=== PATIENT | female | born 1975 | race Caucasian/White ===

== ENCOUNTER 2019-10-29 13:30 | Outpatient (CLI) | payer OTHER, SELFPAY ==
[2019-10-29 13:44] LABS: Hematocrit 39.4 % (35.0-49.0); Mean Corpuscular Hemoglobin 30.2 pg (27.0-31.0); Mean Corpuscular Volume 91.6 fL (78.0-102.0); Mean Platelet Volume 9.4 fl (9.2-11.8); Platelet Count Result 239 K/mm3 (150-420); Red Cell Distribution Width 12.7 % (11.6-14.4); White Blood Count 6.6 K/mm3 (4.8-10.8)
[2019-10-29 14:35] LABS: Anion Gap 10.6 mmol/L (7-16); Blood Urea Nitrogen 22 mg/dL (7-18); Calcium 9.3 mg/dL (8.5-10.1); Carbon Dioxide 30 mmol/L (21-32); Chloride 103 mmol/L (98-108); Estimated Glomerular Filt Rate > 60; Glucose 125 mg/dL (70-99); Osmolality Calculated 292 mOsm/kg (285-295); Potassium 4.6 mmol/L (3.5-5.1); Sodium 139 mmol/L (136-145)
[2019-10-29 14:36] LABS: Thyroid Stimulating Hormone Reflex 1.74 u/IU/mL (0.36-3.74)
== END 2019-10-29 13:31 | disposition home or self-care (01) ==
PROVIDERS: PCP Nurse Practitioner Family
DX: F33.1 Major depressive disorder, recurrent, moderate (principal)
CPT/HCPCS: 36415; 80048; 84443; 85027

== ENCOUNTER 2020-01-11 08:34 | Outpatient (CLI) | payer OTHER, SELFPAY ==
[2020-01-12 18:39] LABS: SARS-CoV-2 RNA PCR Negative
== END 2020-01-11 08:35 | disposition home or self-care (01) ==
LOC: CHSLAB 08:37
PROVIDERS: PCP Nurse Practitioner Family; Visit Provider Nurse Practitioner Family
DX: Z20.828 Contact with and (suspected) exposure to other viral communicable diseases (principal); R51 Headache
CPT/HCPCS: 87635; C9803; U0003

== ENCOUNTER 2020-02-15 01:17 | Outpatient (CLI) | payer OTHER, SELFPAY ==
[2020-02-15 19:05] LABS: SARS-CoV-2 RNA PCR Negative
== END 2020-02-15 01:18 | disposition home or self-care (01) ==
LOC: ANHCOVIDDT 01:17
PROVIDERS: PCP Nurse Practitioner Family; Visit Provider Internal Medicine Gastroenterology
DX: Z01.812 Encounter for preprocedural laboratory examination (principal); Z20.828 Contact with and (suspected) exposure to other viral communicable diseases
CPT/HCPCS: 87635; C9803; U0003

== ENCOUNTER 2020-02-17 01:14 | Day surgery (SDC) | payer OTHER, SELFPAY ==
[2020-02-10 10:48] VITALS: BMI 29.4
--- NOTE | 2020-02-16 08:05 | WPDANESEPPF ---
Anes - Initial Pre Proc Eval Procedure: Operation Date: 02/17/20 09:30 Proposed Procedures p Screening Colonoscopy - Jose Roberto Mueller MD Date/Time: 02/16/20 08:05 Surgeon: Jose Roberto Mueller MD Pre Op Diagnosis: neoplasm screening, family hx colon CA Patient Data Age: 44 Gender: F Height: 1.57 m Weight: 73 kg Allergies Allergy/AdvReac Type Severity Reaction Status Date / Time No Known Allergies Allergy Verified 02/04/20 10:23 Home Medications Medication Instructions Recorded Confirmed Type aspirin 81 mg tablet,delayed 81 mg PO DAILY 05/26/19 02/10/20 History release escitalopram oxalate 20 mg tablet 20 mg PO DAILY tablet 02/04/20 02/17/20 History Patient hx anesthesia problems: none Family hx anesthesia problems: none PMFSH Past Medical History Medical History Depression BENTON (generalized anxiety disorder) 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 History of blood clot in brain (~2011) Surgical History Surgical History History of appendectomy History of brain surgery Brain tumor and blood clots History of Family History Family History Mother Diabetes mellitus Father Diabetes mellitus Social History Social History Smoking status: Never smoker Alcohol intake: current Alcohol use details: SOCIALLY Substance use: never Substance use type: does not use Living arrangements: with family Additional living arrangements comments: , has 2 children Gender identity (if verbalized by the patient): Female Spiritual care concerns: No Anes - Eval Final PreProcedure Day of Procedure 02/16/20 08:05 Patient weight: overweight Heart: regular rate and rhythm Lungs: clear to auscultation and normal air movement Airway: Mallampati scale class II Neurological: alert and oriented Last oral intake: >/= 8 hours ASA classification: II Emergent: no Anesthetic plan: proceed Anesthesia type and monitoring: general GIVS and standard monitoring Informed Consent: The patient's anesthetic plan and its attendant risks and benefits were discussed with the patient/family/POA. Questions were solicited and answers provided to the satisfaction of the patient/family/POA.
--- NOTE | 2020-02-17 08:57 | PM.HPGS ---
History of Present Illness History of Present Illness Consent: Risks, benefits, and alternatives have been discussed and questions answered. Patient agrees to proceed with procedure. Chief complaint: neoplasm screening, family hx colon CA Narrative: Ivet Nicole is a 44 year old W female referred for screening colonoscopy secondary to history of colon cancer family in maternal grandmother. patient is asymptomatic. 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 History of blood clot in brain (~2011) Surgical History Surgical History History of appendectomy History of brain surgery Brain tumor and blood clots History of Family History Family History Mother Diabetes mellitus Father Diabetes mellitus Social History Social History Smoking status: Never smoker Alcohol intake: current Alcohol use details: SOCIALLY Substance use: never Substance use type: does not use Living arrangements: with family Additional living arrangements comments: , has 2 children Gender identity (if verbalized by the patient): Female Spiritual care concerns: No Meds Home Medications and Allergies Home Medications Medication Instructions Recorded Confirmed Type aspirin 81 mg tablet,delayed 81 mg PO DAILY 05/26/19 02/10/20 History release escitalopram oxalate 20 mg tablet 20 mg PO DAILY tablet 02/04/20 02/10/20 History Allergies Allergy/AdvReac Type Severity Reaction Status Date / Time No Known Allergies Allergy Verified 02/04/20 10:23 Exam Const: Orientation/consciousness: patient oriented x3 Resp: Auscultation: clear to auscultation bilaterally Cardio: Rate: regular rate Rhythm: regular rhythm Heart sounds: no murmurs GI: GI Palp: Yes Soft to palpation, No Tenderness to palpation present (GI), Yes No hepatosplenomegaly present and No Palpable mass present Auscultation: normal bowel sounds Neuro: General: patient oriented x3 and no focal motor deficits Extrem: General: no pedal edema Assessment and Plan Additional Plan screening colonoscopy
[2020-02-17 09:01] VITALS: BP 122/78; PULSE 67; RESP 18; TEMP 35.7; O2SAT 100
[2020-02-17] MEDS: LACTATED RINGERS 1,000 ML 150 ML IV CONT (09:21)
[2020-02-17 09:54] VITALS: BP 99/65; PULSE 60; RESP 18; O2SAT 100
[2020-02-17 10:04] VITALS: BP 100/59; PULSE 61; RESP 18; O2SAT 100
[2020-02-17 10:14] VITALS: BP 112/56; PULSE 62; RESP 17; O2SAT 98
== END 2020-02-17 10:45 | disposition home or self-care (01) ==
PROVIDERS: PCP Nurse Practitioner Family; Visit Provider Internal Medicine Gastroenterology
PROC: 0DJD8ZZ Inspection of Lower Intestinal Tract, Via Natural or Artificial Opening Endoscopic (ICD-10-PCS; CPT 45378; principal; 2020-02-17 09:30)
DX: Z12.11 Encounter for screening for malignant neoplasm of colon (principal); K64.8 Other hemorrhoids; K64.4 Residual hemorrhoidal skin tags; Z80.0 Family history of malignant neoplasm of digestive organs; F41.1 Generalized anxiety disorder; F32.9 Major depressive disorder, single episode, unspecified; Z79.82 Long term (current) use of aspirin; Z85.841 Personal history of malignant neoplasm of brain
CPT/HCPCS: 45378; J7120

== ENCOUNTER 2020-02-23 08:49 | Outpatient (CLI) | payer OTHER, SELFPAY ==
--- NOTE | ~2020-02-23 | MM_ITS ---
EXAMINATION: MM screening donaldo BI w shanae HISTORY: Screening TECHNIQUE: Craniocaudal and mediolateral oblique 3-D tomosynthesis images were obtained and synthetic 2-D images were generated. CAD analysis was submitted and interpreted. COMPARISON: Comparison to multiple prior studies sequentially, with oldest reviewed study dated 01/07. BREAST PARENCHYMAL COMPOSITION: The breasts are extremely dense, which lowers the sensitivity of mamm ography. FINDINGS: There is no evidence of suspicious mass, calcification, or architectural distortion to sugg est malignancy in either breast. There has been no suspicious interval change. IMPRESSION: 1. No mammographic evidence of malignancy. 2. Recommend routine screening mammography in one year. BI-RADS Category 1: Negative Reviewed, dictated and finalized at location A. SIVE CARDIOLOGIST
== END 2020-02-23 08:50 | disposition home or self-care (01) ==
LOC: CHSIMG 08:50
PROVIDERS: PCP Nurse Practitioner Family; Visit Provider Obstetrics & Gynecology
DX: Z12.31 Encounter for screening mammogram for malignant neoplasm of breast (principal)
CPT/HCPCS: 77063; 77067

== ENCOUNTER 2021-03-02 12:56 | Outpatient (CLI) | payer OTHER, SELFPAY ==
--- NOTE | ~2021-03-02 | MM_ITS ---
EXAMINATION: MM screening donaldo BI w shanae HISTORY: Screening mammogram TECHNIQUE: Craniocaudal and mediolateral oblique 3-D tomosynthesis images were obtained and synthetic 2-D images were generated. CAD analysis was submitted and interpreted. COMPARISON: 02/2020, 01/19/2019, 01/07/2018 bilateral screening mammogram examinations 01/29/2018 diagnostic left mammogram BREAST PARENCHYMAL COMPOSITION: The breasts are heterogeneously dense, which may obscure small masses . FINDINGS: There is no evidence of suspicious mass, calcification, or architectural distortion to sugg est malignancy in either breast. There has been no suspicious interval change. IMPRESSION: 1. No mammographic evidence of malignancy. 2. Recommend routine screening mammography in one year. BI-RADS Category 1: Negative Reviewed, dictated and finalized at location A. Y PLAN SALES UNIT ADVISOR
== END 2021-03-02 12:57 | disposition home or self-care (01) ==
LOC: CHSIMG 12:58
PROVIDERS: PCP Nurse Practitioner Family; Visit Provider Obstetrics & Gynecology
DX: Z12.31 Encounter for screening mammogram for malignant neoplasm of breast (principal)
CPT/HCPCS: 77063; 77067

== ENCOUNTER 2022-03-06 12:56 | Outpatient (CLI) | payer OTHER, SELFPAY ==
--- NOTE | ~2022-03-06 | MM_ITS ---
EXAMINATION: MM screening donaldo BI w shanae HISTORY: Screening TECHNIQUE: Craniocaudal and mediolateral oblique 3-D tomosynthesis images were obtained and synthetic 2-D images were generated. CAD analysis was submitted and interpreted. COMPARISON: Comparison to multiple prior studies sequentially, with oldest reviewed study dated 01/07. BREAST PARENCHYMAL COMPOSITION: The breasts are heterogeneously dense, which may obscure small masses . FINDINGS: There is no evidence of suspicious mass, calcification, or architectural distortion to sugg est malignancy in either breast. There has been no suspicious interval change. IMPRESSION: 1. No mammographic evidence of malignancy. 2. Recommend routine screening mammography in one year. BI-RADS Category 1: Negative Reviewed, dictated and finalized at location A. MANAGEMENT AGENT
== END 2022-03-06 12:57 | disposition home or self-care (01) ==
LOC: CHSIMG 12:58
PROVIDERS: PCP Nurse Practitioner Family; Visit Provider Obstetrics & Gynecology
DX: Z12.31 Encounter for screening mammogram for malignant neoplasm of breast (principal)
CPT/HCPCS: 77063; 77067

== ENCOUNTER 2023-03-11 12:26 | Outpatient (CLI) | payer OTHER, SELFPAY ==
--- NOTE | ~2023-03-11 | MM_ITS ---
EXAMINATION: MM screening donaldo BI w shanae HISTORY: TECHNIQUE: Craniocaudal and mediolateral oblique 3-D tomosynthesis images were obtained and synthetic 2-D images were generated. CAD analysis was submitted and interpreted. COMPARISON: 03/06/2022, 03/02/2021, 02/2020 bilateral screening mammogram examinations BREAST PARENCHYMAL COMPOSITION: The breasts are heterogeneously dense, which may obscure small masses . FINDINGS: There is no evidence of suspicious mass, calcification, or architectural distortion to sugg est malignancy in either breast. There has been no suspicious interval change. IMPRESSION: 1. No mammographic evidence of malignancy. 2. Recommend routine screening mammography in one year. BI-RADS Category 1: Negative Reviewed, dictated and finalized at location A. PAINTER
== END 2023-03-11 12:27 | disposition home or self-care (01) ==
LOC: CHSIMG 12:28
PROVIDERS: PCP Family Medicine; Visit Provider Obstetrics & Gynecology
DX: Z12.31 Encounter for screening mammogram for malignant neoplasm of breast (principal)
CPT/HCPCS: 77063; 77067

== ENCOUNTER 2024-02-10 12:16 | Outpatient (CLI) | payer OTHER, SELFPAY ==
[2024-02-10 12:37] LABS: Basophils Absolute Auto 0.03 K/mm3 (0.00-0.10); Basophils Percent Auto 0.4 % (0.0-1.0); Eosinophils Absolute Auto 0.27 K/mm3 (0.02-0.50); Eosinophils Percent Auto 3.8 % (1.0-6.0); Hematocrit 38.8 % (35.0-49.0); Hemoglobin 12.7 g/dL (12.0-15.0); Immature Granulocyte Absolute 0.02 K/mm3 (0.00-0.00); Immature Granulocyte Percent A 0.3 % (0.0-0.0); Lymphocytes Absolute Auto 2.39 K/mm3 (1.10-4.50); Mean Corpuscular HGB Conc 32.7 g/dL (32-36); Mean Corpuscular Hemoglobin 29.2 pg (27.0-31.0); Mean Corpuscular Volume 89.2 fL (78.0-102.0); Mean Platelet Volume 9.2 fl (9.2-11.8); Monocytes Percent Auto 7.1 % (2.0-11.0); Neutrophils Absolute Auto 3.82 K/mm3 (1.70-7.20); Neutrophils Percent Auto 54.4 % (50.0-70.0); Platelet Count Result 265 K/mm3 (150-420); Red Blood Count 4.35 M/mm3 (4.20-5.40); Red Cell Distribution Width 12.9 % (11.6-14.4)
[2024-02-10 13:11] LABS: Hemoglobin A1C 7.2 % (<5.7)
[2024-02-10 13:14] LABS: Alanine Aminotransferase 32 U/L (14-59); Albumin Level 3.3 g/dL (3.4-5.0); Alkaline Phosphatase 144 U/L (46-116); Anion Gap 10 mmol/L (4-12); Aspartate Amino Transferase < 10 U/L (15-37); Bilirubin,Total 0.2 mg/dL (0.00-1.00); Blood Urea Nitrogen 14 mg/dL (7-18); Calcium 8.7 mg/dL (8.5-10.1); Carbon Dioxide 26 mmol/L (21-32); Chloride 102 mmol/L (98-108); Cholesterol 190 mg/dL (0-200); Estimated Glomerular Filt Rate > 60; Glucose 190 mg/dL (70-99); HDL Direct 42 mg/dL (40-60); LDL Cholesterol Calculated 101 mg/dL (<130); Osmolality Calculated 291 mOsm/kg (285-295); Potassium 4.1 mmol/L (3.5-5.1); Sodium 138 mmol/L (136-145); Total Protein 6.7 g/dL (6.4-8.2); Triglycerides 233 mg/dL (0-150); Uric Acid 2.5 mg/dL (2.6-6.0)
[2024-02-10 13:35] LABS: Thyroid Stimulating Hormone Reflex 2.27 u/IU/mL (0.36-3.74)
== END 2024-02-10 12:17 | disposition home or self-care (01) ==
LOC: CHSLAB 12:18
PROVIDERS: PCP Nurse Practitioner Family; Visit Provider Nurse Practitioner Family
DX: Z00.00 Encounter for general adult medical examination without abnormal findings (principal); M79.672 Pain in left foot
CPT/HCPCS: 36415; 80053; 80061; 83036; 84443; 84550; 85025

== ENCOUNTER 2024-02-12 14:07 | Outpatient (CLI) | payer OTHER, SELFPAY ==
--- NOTE | ~2024-02-12 | XR_ITS ---
XR foot LT min 3V Ordering provider: Dean Smith APRN History: . M79.672 - Pain in left foot . Comparison: None. FINDINGS: BONES: No acute fracture or dislocation. Calcaneal spur. JOINT SPACES: Normal. No tarsal coalition. SOFT TISSUES: Normal. IMPRESSION: No acute osseous abnormality left foot. Reviewed, dictated and finalized at location A.
== END 2024-02-12 14:08 | disposition home or self-care (01) ==
LOC: CHSIMG 14:09
PROVIDERS: PCP Nurse Practitioner Family; Visit Provider Nurse Practitioner Family
DX: M79.672 Pain in left foot (principal)
CPT/HCPCS: 73630

== ENCOUNTER 2024-02-17 10:49 | Outpatient (RCR) | payer OTHER, SELFPAY ==
--- NOTE | 2024-02-17 11:49 | PTOPEVAL1 ---
Assessment and note entered by Keo Negron Evaluation Information Assessment Status Evaluation Diagnosis left foot pain ICD-10 Condition Codes (PT) M25.572 Onset 02/04/24 Subjective Information Pt. reports she woke with left foot pain on . She recalls no incident, just sudden onset in the morning. She reports that her pain has slightly improved since evaluation. She has undergone x-ray of the left foot that did not have any findings. She states that she will undergo US this afternoon. She states that pain is worsened with weight bearing. She reports that she can only walk for about 5-10 minutes due to left foot pain. She states pain does not affect sleep. She reports that she alters her footwear and has [employer] Balance tennis shoes at home. She states that her goal is to reduce her foot pain. Reported Pain Level Pain Score 5: Self Report Assessment PT Clinical Summary Pt. is a 48 year old female who enters the clinic with left foot pain. Pt. presentation is consistent with plantar fasciitis. She presents with impaired gait, impaired foot posture and impaired flexibility. Educated pt. regarding footwear and modifications to reduce pain. Continued skilled PT is indicated in order to improve these areas to allow for improved comfort with IADL performance. Plan of Care Interventions Electrical Stimulation,Hot Pack/Cold Pack,Manual Therapy,Neuro Re-education,Patient/Caregiver Educati,Therapeutic Activities,Therapeutic Exercise PT Services Indicated Yes Treatment Frequency and 1x/week x 4 visits Duration These treatments will address the objective and functional deficits as defined above. The patient will be advanced safely and appropriately in order for the patient to progress towards his/her prior level of function. Additional exercises will be introduced and as well as a comprehensive home exercise program upon discharge, if needed, ?to ensure carryover of functional gains achieved in the clinic. This treatment plan has been reviewed and agreement upon by the patient.
--- NOTE | 2024-02-17 11:50 | OPREHPOC ---
Outpatient Therapy Plan of Care This is a Multidisciplinary Plan of Care that may contain components documented by all disciplines (PT, OT, and ST.) PT Problem 1 PT Problem #1 Knowledge Deficit PT Goal 1 Goal / Goal Update Pt. will be independent with a HEP addressing flexibility Target Visit 2 PT Problem 2 PT Problem #2 Impaired Range of Motion PT Goal 1 Goal / Goal Update Pt. will demonstrate 10 degrees bilateral ankle dorsiflexion Target Visit 4 PT Problem 3 PT Problem #3 Impaired Functional Mobil PT Goal 1 Goal / Goal Update Pt. will reports a reduction in pain levels to 2/ 10 at worst with walking for greater than 30 minutes Target Visit 4
== END 2024-02-17 11:30 | disposition home or self-care (01) ==
LOC: CHSPT 10:49
PROVIDERS: PCP Family Medicine; Visit Provider Nurse Practitioner Family
DX: M79.672 Pain in left foot (principal)
CPT/HCPCS: 97110; 97161

== ENCOUNTER 2024-02-19 10:03 | Outpatient (CLI) | payer OTHER, SELFPAY ==
--- NOTE | ~2024-02-19 | US_ITS ---
LEFT LOWER EXTREMITY VENOUS ULTRASOUND Ordering provider: Dean Smith APRN History: . M79.89 - Other specified soft tissue disorders . Comparison: None. FINDINGS: --COMMON FEMORAL: Patent and free of thrombus. Normal compressibility, phasic flow and augmentation. --PROXIMAL SUPERFICIAL FEMORAL: Patent and free of thrombus. Normal compressibility, phasic flow and augmentation. --DISTAL SUPERFICIAL FEMORAL: Patent and free of thrombus. Normal compressibility, phasic flow and au gmentation. --POPLITEAL: Patent and free of thrombus. Normal compressibility, phasic flow and augmentation. --POSTERIOR TIBIAL: Patent and free of thrombus. Normal compressibility, phasic flow and augmentation . IMPRESSION: Negative left lower extremity venous US. No deep vein thrombosis. Reviewed, dictated and finalized at location A.
== END 2024-02-19 10:04 | disposition home or self-care (01) ==
LOC: CHSIMG 10:04
PROVIDERS: PCP Family Medicine; Visit Provider Nurse Practitioner Family
DX: M79.672 Pain in left foot (principal); M79.89 Other specified soft tissue disorders
CPT/HCPCS: 93971

== ENCOUNTER 2024-03-15 13:04 | Outpatient (CLI) | payer OTHER, SELFPAY ==
--- NOTE | ~2024-03-15 | MM_ITS ---
EXAMINATION: MM screening donaldo BI w shanae HISTORY: Screening TECHNIQUE: Craniocaudal and mediolateral oblique 3-D tomosynthesis images were obtained and synthetic 2-D images were generated. CAD analysis was submitted and interpreted. COMPARISON: Comparison to multiple prior studies sequentially, with oldest reviewed study dated 01/07. BREAST PARENCHYMAL COMPOSITION: Dense: The breasts are extremely dense, which lowers the sensitivity of mammography. FINDINGS: There is no evidence of suspicious mass, calcification, or architectural distortion to sugg est malignancy in either breast. There has been no suspicious interval change. IMPRESSION: 1. No mammographic evidence of malignancy. 2. Recommend routine screening mammography in one year. BI-RADS CATEGORY 1 - NEGATIVE Reviewed, dictated and finalized at location B. ALT PAVING MACHINE OPERATOR
== END 2024-03-15 13:05 | disposition home or self-care (01) ==
LOC: CHSIMG 13:07
PROVIDERS: PCP Family Medicine; Visit Provider Obstetrics & Gynecology
DX: Z12.31 Encounter for screening mammogram for malignant neoplasm of breast (principal)
CPT/HCPCS: 77063; 77067

== ENCOUNTER 2024-05-12 08:01 | Outpatient (RCR) | payer OTHER, SELFPAY ==
--- NOTE | 2024-05-12 09:16 | OPREHPOC ---
Outpatient Therapy Plan of Care This is a Multidisciplinary Plan of Care that may contain components documented by all disciplines (PT, OT, and ST.) PT Problem 1 PT Problem #1 Knowledge Deficit PT Goal 1 Goal / Goal Update 1. independent and compliant with HEP Target Visit 5 PT Problem 2 PT Problem #2 Pain PT Goal 1 Goal / Goal Update 1. decrease pain at worst to 3/10 or less in the R shoulder Target Visit 10 PT Problem 3 PT Problem #3 Impaired Range of Motion PT Goal 1 Goal / Goal Update 1. 160 degrees active R shoulder flexion 2. 85 degrees or better active R shoulder ER 3. 70 degrees or better active R shoulder IR Target Visit 10 PT Problem 4 PT Problem #4 Impaired Strength PT Goal 1 Goal / Goal Update 1. 5/5 R elbow strength 2. 5/5 R shoulder strength 3. 5/5 L shoulder ER strength Target Visit 10 PT Problem 5 PT Problem #5 Impaired Functional Mobility PT Goal 1 Goal / Goal Update 1. quick dash to display 10% or less functional deficits 2. patient to achieve functional reach behind back to the bra line with the R UE Target Visit 10
--- NOTE | 2024-05-12 09:16 | PTOPEVAL1 ---
Assessment and note entered by JT File, PT Evaluation Information Assessment Status Evaluation Diagnosis other shoulder lesions, R ICD-10 Condition Codes (PT) Pain in right shoulder M25.511 Other ICD-10 Condition Codes ( M75.81 PT) Subjective Information patient reports she stepped off the front porch steps back in September of 2023. she does not remember what happened, but came to sitting with her keys and coffee mug in her hands. she reports she was unable to move the R arm after this. she reports she also injured the L foot and R knee during this fall. she reports the shoulder was sore for a long time, and then had difficulty reaching behind her back to put her bra on. she reports when reaching overhead feels like a bunch of needles in her shoulder. she reports she does have some pain around the R elbow. she reports no tingling in the R arm. she reports she did not have any xrays or imaging. Reported Pain Level Pain Score 0: Self Report Assessment PT Clinical Summary mrs. haque is a 48 yo woman who presents to skilled PT services for evaluation and treatment of R shoulder pain from a fall back in September of 2023. she presents today with tenderness around the R shoulder, weakness of the R shoulder, and pain with special tests indicating a RTC and biceps tendonitis leading with secondary impingement. she would benefit from continued skilled PT to address her objective/functional deficits and return to her prior level functional activity performance/quality of life. Plan of Care Interventions Electrical Stimulation,Hot Pack/Cold Pack,Manual Therapy,Neuro Re-education,Patient/Caregiver Education,Therapeutic Activities,Therapeutic Exercise PT Services Indicated Yes Treatment Frequency and 2x weekly for 10 visits Duration These treatments will address the objective and functional deficits as defined above. The patient will be advanced safely and appropriately in order for the patient to progress towards his/her prior level of function. Additional exercises will be introduced and as well as a comprehensive home exercise program upon discharge, if needed, ?to ensure carryover of functional gains achieved in the clinic. This treatment plan has been reviewed and agreement upon by the patient.
--- NOTE | 2024-06-29 08:50 | PTOPDC ---
Assessment and note entered by Lala Aparicio DPT Evaluation Information Assessment Status Discharge Diagnosis other shoulder lesions, R ICD-10 Condition Codes (PT) Pain in right shoulder M25.511 Other ICD-10 Condition Codes ( M75.81 PT) Subjective Information patient reports her shoulder has stayed about the same. she reports she continues to have pain with all reaching activities and sleeping. she reports she does not have a follow up scheduled. Reported Pain Level Pain Score 8: Self Report Assessment PT Clinical Summary Ms. Nicole has attended 10 visits of skilled PT with limited progress towards goals. She continues to have elevated pain levels with all daily activities and sleeping. She also displays minimal improvements in active ROM and strength of the R shoulder. Patient is independent with HEP. Patient will be discharged at this time and recommend further imaging for next steps in POC. Plan of Care PT Services Indicated No
== END 2024-06-29 09:09 | disposition home or self-care (01) ==
LOC: CHSPT 08:01
PROVIDERS: PCP Family Medicine; Visit Provider Family Medicine
DX: M75.81 Other shoulder lesions, right shoulder (principal)
CPT/HCPCS: 97014; 97110; 97161; G0283

== ENCOUNTER 2024-09-01 11:59 | Emergency (ER) | payer OTHER, SELFPAY ==
[2024-09-01] VITALS (21 sets, daily range): BP systolic 135–150; BP diastolic 88–95; PULSE 71–96; RESP 16–34; TEMP 36.6; O2SAT 91–99
--- NOTE | ~2024-09-01 | CT_ITS ---
CTA chest PE protocol Ordering provider: Santana Edward MD History: 49 years Female with . chest pain wit positive d-dimer . Comparison: None. Technique: CT angiogram chest was performed following timed intravenous injection of contrast. Thin s lice axial images and reformatted coronal images were obtained. Three dimensional reformatted images of the chest were also obtained using a [employer] workstation. . Automated exposure control and iterati ve reconstruction technique were employed. The dose-length product was 392.62 mGy-cm. 90 ML Omnipaque 350 was given IV. Findings: PULMONARY ARTERIES: No pulmonary embolus. VISUALIZED THORACIC INLET: Normal. MEDIASTINUM: Aorta/coronary arteries: The thoracic aorta is normal. Heart/other: The heart is not enlarged. Lymph nodes: No mediastinal or hilar adenopathy. LUNGS: No pulmonary nodules or masses. No infiltrates or effusions. No pneumothorax. Dependent atelectatic c hanges. VISUALIZED UPPER ABDOMEN: the visualized upper abdomen is normal. MUSCULOSKELETAL: Soft tissues: The superficial soft tissues are normal. Bones: Age appropriate degenerative changes of the spine. IMPRESSION: 1. No pulmonary embolism. 2. No acute cardiopulmonary pathology. Reviewed, dictated and finalized at location A.
--- NOTE | ~2024-09-01 | XR_ITS ---
EXAMINATION: XR chest 1V portable 09/01/2024 13:25 INDICATION: Chest pain PROCEDURE: AP portable chest COMPARISON: 12/05/2011 FINDINGS: The lungs are clear. The cardiomediastinal silhouette is within normal limits. There are no pleural effusions. There is no pneumothorax suspected. IMPRESSION: 1: NO ACUTE CARDIOPULMONARY DISEASE. Reviewed, dictated and finalized at location A.
--- NOTE | 2024-09-01 12:01 | ECG_ITS ---
Test Date: 2024-09-01 12:37:55 Measurements Intervals Stephens Rate: 84 P: 74 PA: 164 QRS: 68 QRSD: 74 T: 78 QT: 360 QTc: 427 Interpretive Statements SINUS RHYTHM LOW QRS VOLTAGE IN PRECORDIAL LEADS [QRS DEFLECTION < 1.0 mV IN CHEST LEADS] No previous ECG available for comparison Electronically Signed On 09-02-2024 15:53:13 CDT by Gary Chapman M.D.
--- OUTSIDE RECORDS SUMMARY | 2024-09-01 12:03 | XMS_ITS | Clinical Summary ---
Author Organization [facility] Address [address] [place] [address] Care Team Providers Care Pressure Tester Name Role Phone Suyapa Ruby NP Primary Care Provide r Allergies No known active allergies Medications aspirin 81 mg chewable tablet daily. Active calcium carbonate (TUMS) 500 mg (200 mg elemental) chewable tablet take as directed when needed Active acetaminophen (TYLENOL) 325 mg tablet PRN Active multivitamin capsule Take 1 capsule by mouth daily Active FLUoxetine (PROzac) 60 mg tablet Take 1 tablet (60 mg total) by mouth daily 90 capsule 2 08/13/19 25 026 Active OLANZapine (ZyPREXA) 5 mg tabletIndicati ons:Depression Treatment Adjunct Take 1 tablet (5 mg total) by mouth nightly 90 tablet 3 08/13/19 25 026 Active FLUoxetine (PROzac) 40 mg capsule Take 1 capsule (40 mg total) by mouth daily 90 capsule 2 06/23/19 25 025 Discontinued OLANZapine (ZyPREXA) 5 mg tabletIndicati ons:Depression Treatment Adjunct Take 1 tablet (5 mg total) by mouth nightly 30 tablet 3 07/13/19 25 025 Discontinued(Re order) Active Problems Problem Noted Date Diagnosed Date History of brain tumor 06/26/2022 Insomnia 10/29/2021 Memory impairment 03/20/2021 ROME (obstructive sleep apnea) 03/20/2021 Anxiety and depression 03/20/2021 Language difficulty 03/20/2021 Anxiety 09/29/2020 Moderate episode of recurrent major depressive d isorder 10/19/2019 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 02/27/2011 Encounters Date Type Department Care Team Description 08/12/2024 10:30 AM CDT Office Visit [facility] Psych[facility] [address] [place] [address] Tracee Hamlin NP MDD (major depressive disorder), recurrent episode, moderate (HCC) (Primary Dx); Anxiety; Domestic concerns 07/01/2024 10:30 AM CDT Office Visit [facility] Psychiat[facility] [address] [place] [id number] Tracee Hamlin NP MDD (recurrent major depressive disorder) in remission (Primary Dx); Anxiety; Domestic concerns from Last 3 Months Immunizations Immunization Administration Dates Next Due Influenza, Quadrivalent, Luna l Culture-based MDCK, Preservative Free, Antibiotic Free, Intramuscular 02/22/2021 Influenza, Quadrivalent, Split, Intramuscular Influenza, Quadrivalent, Spl it, Preservative Free, Intramuscular 02/04/2020,02/13/2019 Influenza, Trivalent, IM (MDV) 02/05/2013 Influenza, Trivalent, Preservative Free, Intramu scular 02/05/2016,02/13/2015 Moderna SARS-CoV-2 Monovalent Vaccination (12+ Y RS) 08/04/2020,07/07/2020 Medical History Medical History Date Comments Other phlebitis or thrombosi s affecting , childbirth, or puerperium Intracranial Veno us Sinus Thrombosis During /Puerperium - (Added by TW Conv) Personal history of other sp ecified conditions History of fatigue - (Added by TW Conv) 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 Graves disease Family History Medical History Relation Name Comments c diff Brother 1 No Known Problems Brother 2 Diabetes Father Family history of diabetes mellitus - (Added by TW Conv) Prostate cancer Father eye issues Father Colon cancer Maternal Grandmother Asthma Mother Depression Mother Hypertension Mother Family history of hypertension - (Added by TW Conv) Thyroid disease Mother Family histo ry of thyroid disease - (Added by TW Conv) hysterectomy Mother Dementia Other maternal great aunt Dementia Paternal Grandmother Relation Name Status Comments Brother 1 Alive Brother 2 Alive Father Alive Maternal Grandmother Mother Other maternal great aunt Alive Paternal Grandmother Social History Tobacco Use Types Packs/Day Years Used Date Smoking Tobacco: Never Smokeless Tobacco: Never Tobacco Cessation:Counseling Given: Not Answered AUDIT-C Answer Date Recorded Q1: How often do you have a drink containing alc ohol? 2-4 times a month 03/20/2021 Q2: How many drinks containi ng alcohol do you have on a typical day when you are drinking? 1 or 2 03/20/2021 Frequency of Binge Drinking Not on file 02/21 Education Answer Date Recorded What is the highest level of school you have completed or the highest degree you have received? Bachelor's degree (e.g., BA, AB, BS) 03/20/2021 Comments Unknown Sex and Gender Information Value Date Recorded Sex Assigned at Not on file Legal Sex Female 5:03 AM PENSION CONSULTANT Gender Identity Not on file Sexual Orientation Straight 10/13/2019 3: 10 PM CDT Obstetrics History Last Filed Vital Signs Vital Sign Reading Time Taken Comments Blood Pressure 127/86 05/24/2024 9:04 AM PENSION CONSULTANT Pulse 97 05/24/2024 9:04 AM PENSION CONSULTANT Temperature 36.3 C (97.4 F) 05/24/2024 9:04 AM PENSION CONSULTANT Respiratory Rate 18 05/24/2024 9:04 AM PENSION CONSULTANT Oxygen Saturation 97% 05/24/2024 9:04 AM PENSION CONSULTANT Inhaled Oxygen Concentration - - Weight 81.6 kg (180 lb) 05/24/2024 9:04 AM PENSION CONSULTANT Height 157.5 cm (5' 2.01 ) 05/24/2024 9:04 AM CS T Body Mass Index 32.91 05/24/2024 9:04 AM PENSION CONSULTANT Plan of Treatment Health Maintenance Due Date Last Done Comments Breast Cancer Screening-Mammogram 1977 Cervical Cancer Screening 1977 Colon Cancer Screening-Colonoscopy 1977 Depression Screening 1977 Hepatitis C Screening 1977 DTaP/Tdap/Td Vaccine (1 - Tdap) 1988 Hepatitis B Screening 1995 Regular Well Visit/Exam 18-64 1995 Covid-19 Vaccine ( season) 2023 08/04/2020, 07/07/2020 Influenza Vaccine (Season Ended) 2024 02/22/2021, 02/04/2020, 02/13/2019, Additional history exists Pneumococcal vaccine <65 Aged Out No longer eligible based on patient's age to complete this topic Medical Devices Implanted Type Area Veterinary Milk Specialist Device Identifier Shelf Expiration Date Model / Serial / Lot Iud Vagina Insurance [facility] H[facility]PPO Address: [facility] [id number] [place] [id number] [facility] CHOICE PLUS [facility] HMO/PPO Address: [address] [address] [place] [address] [facility] H[facility]/PPO Address: [id number] [place] [address] Care Teams Pressure Tester Relationship Specialty Start Date End Date Suyapa Ruby NP [address] [place] [address] PCP - General Nurse Practitioner 04/10/21
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
--- NOTE | 2024-09-01 12:16 | ED_ITS ---
HPI - Chest Pain General Chief Complaint: Chest Pain Stated Complaint: chest pain Source: patient Mode of arrival: ambulatory History of Present Illness HPI narrative: 49-year-old female with a history of anxiety /depression, brain tumor status post resection status post chemo / RT 17 years ago, presents to the ED with an 8 hour history of -- substernal chest pain which woke her up from a sleep. No radiation of the pain. Pain was noted to be 7/10. The pain has been intermittent and is currently 3/10. No nausea/ vomiting. No shortness of breath or lightheadedness. No prior episodes of pain. Patient is a nonsmoker without any history of hypertension, dyslipidemia, diabetes mellitus or a family history of coronary artery disease. MD complaint: chest pain Onset (ago): hour(s) ( 8 hours ago) Timing of current episode: episodic Prior episodes: No Onset: during rest Pain location: substernal Pain radiation: none Severity: moderate Pain scale (0-10): 7 Quality: aching Relieving factors: nothing Exacerbating factors: nothing Treatment prior to arrival: none Risk Factors Coronary artery disease risk factors: none Thoracic aortic dissection risk factors: none Related Data On Oral Contraceptives: No Home Medications Medication Instructions Recorded Confirmed Last Taken Type aspirin 81 mg tablet,delayed 81 mg PO DAILY 05/26/19 05/07/24 Unknown History release olanzapine 5 mg tablet mg PO 02/10/24 05/07/24 Unknown History fluoxetine 20 mg capsule 40 mg PO 05/07/24 05/07/24 Unknown History Allergies Allergy/AdvReac Type Severity Reaction Status Date / Time No Known Allergies Allergy Verified 05/07/24 07:55 Review of Systems 2 Review of Systems: All systems reviewed & are unremarkable except as noted in HPI and below Constitutional: Constitutional: Reports as per HPI and Reports no additional constitutional complaints Eyes: Eyes: Reports as per HPI and Reports no additional eye complaints ENT: Reports system reviewed and no additional complaints, except as documented and Reports as per HPI Cardiovascular: Cardiovascular: Reports as per HPI, Reports no additional cardiovascular complaints and Reports chest pain Respiratory: Respiratory: Reports as per HPI and Reports no additional respiratory complaints Gastrointestinal: Gastrointestinal: Reports as per HPI and Reports no additional gastrointestinal complaints Genitourinary: Genitourinary: Reports no additional female genitourinary complaints and Reports as per HPI Musculoskeletal: Musculoskeletal: Reports no additional musculoskeletal complaints and Reports as per HPI Integumentary/Breasts: Skin/Breast: Reports system reviewed and no additional complaints, except as docu and Reports as per HPI Neurologic: Reports system reviewed and no additional complaints, except as documented and Reports as per HPI Psychiatric: Psychiatric: Reports no additional psychiatric complaints and Reports as per HPI Endocrine: Endocrine: Reports no additional endocrine complaints and Reports as per HPI Hematologic/Lymphatic: Hematologic/Lymphatic: Reports no additional hematologic/lymphatic complaints and Reports as per HPI Allergic/Immunologic: Allergic/Immunologic: Reports no additional allergic/immunologic complaints and Reports as per HPI [facility] Past Medical History Medical History Depression History of blood clot in brain (~2011) 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 [place] (generalized anxiety disorder) Surgical History Surgical History History of History of brain surgery Brain tumor and blood clots History of appendectomy Family History Family History Mother Diabetes mellitus Father Diabetes mellitus Social History Social History Smoking status: Never smoker Alcohol intake: current Alcohol use details: SOCIALLY Substance use: never Substance use type: does not use Living arrangements: with family Additional living arrangements comments: , has 2 children Occupation/Education: unemployed Gender identity (if verbalized by the patient): Female Spiritual care concerns: No Exam 2 Narrative: pulse of 86 blood pressure 148/95 oxygen saturation of 97% on room air. Const: General: healthy appearing and no acute distress Nutritional Appearance: well nourished Orientation/consciousness: patient oriented x3 Limitations: no limitations HENMT: Head: normal to inspection Ears: external ears normal F kobe/Nose/Sinus: Normal external nose present Face and sinus: normal facial exam Mouth: Yes Normal oral and palatal mucosa present Throat: posterior oropharynx normal Eyes: Conjunctivae: conjunctivae normal Pupils: Equal, round and reactive pupils present EOM: EOMs intact bilaterally Direct Ophthalmoscopy: no photophobia Neck: Neck: normal visual inspection Chest: Chest palpation & inspection: normal inspection of the chest and abnormal inspection of the chest Resp: Effort & Inspection: normal respiratory effort Auscultation: clear to auscultation bilaterally Cardio: Rate: regular rate Rhythm: regular rhythm GI: Auscultation: normal bowel sounds Other: No tenderness/ rigidity /rebound. : General: Yes no CVA tenderness Back/Spine/Pelvis: Back: no CVA tenderness Skin: General skin exam: normal color Rashes: no rashes Wounds: no wounds Neuro: General: patient oriented x3, moves all extremities, no meningeal signs, no focal motor deficits and CN's II-XI intact bilaterally Cranial nerves: Yes Nystagmus not present Speech: normal speech Gait exam (Neuro): Normal gait present Extrem: General: normal to inspection and no clubbing, cyanosis or edema Psych: Mental Status: mental status grossly normal Affect: normal affect Attitude: cooperative Course Course Emergency Course: Chest pain-- EKG did not show any acute findings. normal troponin. elevated D-dimer. Patient had a CT of chest which did not show any evidence of PE. Elevated LFTs and lipase. patient denies epigastric pain. Will have the patient take p.o. clears and follow-up with the primary care physician. The patient does not have any epigastric pain / tenderness. The patient just received contrast for the chest. Would not be able to repeat a contrast CT of the abdomen. Will have a follow-up with primary care physician in 3 days. And with me on a Vital Signs Vital signs: Vital Signs Pulse Rate 71 09/01/24 12:10 Pulse Rate 78 09/01/24 14:30 Respiratory Rate 28 H 09/01/24 14:30 Blood Pressure 144/94 H 09/01/24 14:30 Pulse Oximetry 97 09/01/24 14:30 Oxygen Delivery Room Air 09/01/24 13:45 MDM - Chest Pain MDM Narrative Medical decision making narrative: Chest pain transaminitis elevated lipase CT Differential Diagnosis Differential diagnosis: Likely atypical chest pain Medical Records Data Attestation: I reviewed the patient's medical records. Lab Data Attestation: I reviewed the patient's lab results. 09/01/24 13:28 09/01/24 13:28 Labs: Lab Results 09/01/24 Range/Units 13:28 WBC 6.9 (4.8-10.8) K/mm3 RBC 4.54 (4.20-5.40) M/mm3 Hgb 12.8 (12.0-15.0) g/dL Hct 40.2 (35.0-49.0) % MCV 88.5 (78.0-102.0) fL MCH 28.2 (27.0-31.0) pg MCHC 31.8 L (32-36) g/dL RDW 13.4 (11.6-14.4) % Plt Count 222 (150-420) K/mm3 MPV 9.0 L (9.2-11.8) fl Immature Gran % (Auto) 0.4 H (0.0-0.0) % Neut % (Auto) 75.1 H (50.0-70.0) % Lymph % (Auto) 16.5 L (18.0-42.0) % Fisher % (Auto) 7.0 (2.0-11.0) % Eos % (Auto) 0.9 L (1.0-6.0) % Baso % (Auto) 0.1 (0.0-1.0) % Lymph # (Auto) 1.13 (1.10-4.50) K/mm3 Fisher # (Auto) 0.48 (0.10-0.90) K/mm3 Eos # (Auto) 0.06 (0.02-0.50) K/mm3 Baso # (Auto) 0.01 (0.00-0.10) K/mm3 Abs Immat Gran (auto) 0.03 H (0.00-0.00) K/mm3 Absolute Neuts (auto) 5.15 (1.70-7.20) K/mm3 Absolute Nucleated RBC 0.00 (0.00-0.00) K/mm3 Nucleated RBC % 0.0 (0-0.0) % PT 10.9 (9.50-12.1) Seconds INR 1.0 APTT 28.8 (23.9-30.70) Sec D-Dimer 1.90 H* (0.19-0.50) mg/L Sodium 136 L (137-145) mmol/L Potassium 3.8 (3.4-5.0) mmol/L Chloride 106 (98-107) mmol/L Carbon Dioxide 22 (22-30) mmol/L Anion Gap 8 (4-12) mmol/L BUN 12 (7-17) mg/dL Creatinine 0.57 L (0.7-1.0) mg/dL Estim Creat Clear Calc Not Reportable Estimated GFR > 60 (59 - ) Glucose 206 H (65-110) mg/dL Calculated Osmolality 287 (285-295) mOsm/kg Lactic Acid 2.2 H (0.4-2.0) mmol/L Calcium 8.6 (8.4-10.2) mg/dL Magnesium 1.9 (1.6-2.3) mg/dL Total Bilirubin 0.6 (0.2-1.3) mg/dL AST 43 H (14-36) U/L ALT 57 H (6-35) U/L Alkaline Phosphatase 110 (38-126) U/L Troponin I < 0.012 (0.000-0.034) ng/mL NT-Pro-B Natriuret Pep 144 H (19.9-100) pg/mL Total Protein 6.7 (6.3-8.2) g/dL Albumin 3.9 (3.5-5.1) g/dL Lipase 439 H (23-300) U/L ECG Data EKG #1: Attestation: I personally reviewed and interpreted this ECG as follows: ECG completion date: 09/01/24 ECG completion time: 12:37 Interpretation: normal sinus rhythm. Normal axis. No ST elevation. Discharge Plan Discharge Clinical Impression: Atypical chest pain, Fatty liver, Elevated lipase Patient Disposition: Home Condition: Stable Instructions: Antibiotic Form, Chest Pain (ED) Additional Instructions: follow-up with primary care physician in 3 days for elevated LFTs and elevated lipase. Patient Language: East Timorese Prescriptions: No Action aspirin 81 mg tablet,delayed release (DR/EC) 81 mg PO DAILY olanzapine 5 mg tablet PO hydrocodone-acetaminophen 5-325 mg tablet 1 tablet PO QHS PRN (Reason: pain (scale score 7-10)) Qty: 20 0RF fluoxetine 20 mg capsule 40 mg PO Follow-up/Referrals: Stanley Mac DO [Primary Care Provider] - Time of Disposition: 15:42
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
[2024-09-01 13:32] LABS: Basophils Absolute Auto 0.01 K/mm3 (0.00-0.10); Basophils Percent Auto 0.1 % (0.0-1.0); Eosinophils Absolute Auto 0.06 K/mm3 (0.02-0.50); Eosinophils Percent Auto 0.9 % (1.0-6.0); Hematocrit 40.2 % (35.0-49.0); Hemoglobin 12.8 g/dL (12.0-15.0); Immature Granulocyte Absolute 0.03 K/mm3 (0.00-0.00); Immature Granulocyte Percent A 0.4 % (0.0-0.0); Lymphocytes Absolute Auto 1.13 K/mm3 (1.10-4.50); Lymphocytes Percent Auto 16.5 % (18.0-42.0); Mean Corpuscular HGB Conc 31.8 g/dL (32-36); Mean Corpuscular Hemoglobin 28.2 pg (27.0-31.0); Mean Corpuscular Volume 88.5 fL (78.0-102.0); Monocytes Absolute Auto 0.48 K/mm3 (0.10-0.90); Neutrophils Absolute Auto 5.15 K/mm3 (1.70-7.20); Neutrophils Percent Auto 75.1 % (50.0-70.0); Platelet Count Result 222 K/mm3 (150-420); Red Blood Count 4.54 M/mm3 (4.20-5.40); Red Cell Distribution Width 13.4 % (11.6-14.4); White Blood Count 6.9 K/mm3 (4.8-10.8)
[2024-09-01 13:50] LABS: Alanine Aminotransferase 57 U/L (6-35); Albumin Level 3.9 g/dL (3.5-5.1); Alkaline Phosphatase 110 U/L (38-126); Anion Gap 8 mmol/L (4-12); Aspartate Amino Transferase 43 U/L (14-36); Bilirubin,Total 0.6 mg/dL (0.2-1.3); Blood Urea Nitrogen 12 mg/dL (7-17); Calcium 8.6 mg/dL (8.4-10.2); Carbon Dioxide 22 mmol/L (22-30); Chloride 106 mmol/L (98-107); Estimated Glomerular Filt Rate > 60; Glucose 206 mg/dL (65-110); Lactic Acid Reflex 2.2 mmol/L (0.4-2.0); Osmolality Calculated 287 mOsm/kg (285-295); Potassium 3.8 mmol/L (3.4-5.0); Sodium 136 mmol/L (137-145); Total Protein 6.7 g/dL (6.3-8.2)
[2024-09-01 13:51] LABS: Partial Thromboplastin Time 28.8 Sec (23.9-30.70); Prothrombin Time 10.9 Seconds (9.50-12.1)
[2024-09-01] MEDS: ASPIRIN 81 MG CHEWABLE TABLET 324 MG PO (13:54)
[2024-09-01 13:59] LABS: NT Pro B Type Natriuretic Pept 144 pg/mL (19.9-100)
[2024-09-01 14:00] LABS: Lipase 439 U/L (23-300); Magnesium 1.9 mg/dL (1.6-2.3)
[2024-09-01 14:13] LABS: Troponin I < 0.012 ng/mL (0.000-0.034)
[2024-09-01] MEDS: LACTATED RINGERS 1,000 ML 999 ML IV CONT (14:26)
[2024-09-01 15:50] LABS: Reflex Lactic Acid Yes or No Add Lactic
== END 2024-09-01 16:14 | disposition home or self-care (01) ==
PROVIDERS: Emergency Provider Internal Medicine Critical Care Medicine; PCP Family Medicine
DX: R07.89 Other chest pain (principal); K76.0 Fatty (change of) liver, not elsewhere classified; R74.8 Abnormal levels of other serum enzymes
CPT/HCPCS: 36415; 71045; 71275; 80053; 83605; 83690; 83735; 83880; 84484; 85025; 85380; 85610; 85730; 93005; 96360; 99284; A9270; J7120; Q9967

== ENCOUNTER 2024-09-10 13:54 | Outpatient (CLI) | payer OTHER, SELFPAY ==
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
[2024-09-10 14:34] LABS: Alanine Aminotransferase 48 U/L (6-35); Albumin Level 3.7 g/dL (3.5-5.1); Alkaline Phosphatase 146 U/L (38-126); Anion Gap 4 mmol/L (4-12); Aspartate Amino Transferase 28 U/L (14-36); Bilirubin,Total 0.4 mg/dL (0.2-1.3); Blood Urea Nitrogen 15 mg/dL (7-17); Calcium 8.9 mg/dL (8.4-10.2); Carbon Dioxide 24 mmol/L (22-30); Chloride 108 mmol/L (98-107); Estimated Glomerular Filt Rate > 60; Glucose 209 mg/dL (65-110); Lipase 172 U/L (23-300); Osmolality Calculated 288 mOsm/kg (285-295); Potassium 4.3 mmol/L (3.4-5.0); Sodium 136 mmol/L (137-145); Total Protein 6.3 g/dL (6.3-8.2)
[2024-09-16 04:29] LABS: Hepatitis A Antibody IgM NON-REACTIVE (NON-REACTIVE); Hepatitis B Core Antibody NON-REACTIVE (NON-REACTIVE); Hepatitis B Surface Antigen NON-REACTIVE (NON-REACTIVE); Hepatitis C Virus Antibody NON-REACTIVE (NON-REACTIVE)
== END 2024-09-10 13:55 | disposition home or self-care (01) ==
LOC: CHSLAB 13:55
PROVIDERS: PCP Family Medicine; Visit Provider Family Medicine
DX: R10.9 Unspecified abdominal pain (principal); R74.01 Elevation of levels of liver transaminase levels; E03.9 Hypothyroidism, unspecified; F41.1 Generalized anxiety disorder
CPT/HCPCS: 36415; 80053; 80074; 83690; 84443

== ENCOUNTER 2024-09-20 11:11 | Outpatient (CLI) | payer OTHER, SELFPAY ==
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
== END 2024-09-20 11:12 | disposition home or self-care (01) ==
PROVIDERS: PCP Family Medicine; Visit Provider Family Medicine
DX: R74.01 Elevation of levels of liver transaminase levels (principal)
CPT/HCPCS: 99199

== ENCOUNTER 2024-09-23 07:37 | Outpatient (CLI) | payer OTHER, SELFPAY ==
--- NOTE | ~2024-09-23 | US_ITS ---
US right upper quadrant INDICATION: Elevated liver function tests. PROCEDURE: Realtime right upper abdominal ultrasound. COMPARISON: No prior studies for comparison. FINDINGS: The pancreas is normal without focal mass or pancreatic ductal dilation. Liver echotexture is diffusely increased, consistent with fatty infiltration. There is normal directional flow in the portal vein. The gallbladder is normal without stones, gallbladder wall thickening or pericholecystic fluid. Comm on bile duct measures 4 mm. No sonographic Tubbs's sign. IMPRESSION: 1: Fatty infiltration of the liver. Reviewed, dictated and finalized at location A.
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
== END 2024-09-23 07:38 | disposition home or self-care (01) ==
LOC: CHSIMG 07:38
PROVIDERS: PCP Family Medicine; Visit Provider Family Medicine
DX: M75.81 Other shoulder lesions, right shoulder (principal); R94.5 Abnormal results of liver function studies; K76.0 Fatty (change of) liver, not elsewhere classified
CPT/HCPCS: 76705

== ENCOUNTER 2025-03-21 13:28 | Outpatient (CLI) | payer OTHER, SELFPAY ==
--- NOTE | ~2025-03-21 | MM_ITS ---
EXAMINATION: MM screening donaldo BI w shanae HISTORY: Screening. TECHNIQUE: Craniocaudal and mediolateral oblique 3-D tomosynthesis images were obtained and synthetic 2-D images were generated. CAD analysis was submitted and interpreted. COMPARISON: 2023, 2022, and 2021. BREAST PARENCHYMAL COMPOSITION: Dense: The breasts are heterogeneously dense FINDINGS: No suspicious masses are seen. There are no suspicious calcifications. No unexplained architectural distortion is seen. There are no skin or nipple abnormalities identified. There is no adenopathy seen on the images submitted. IMPRESSION: No mammographic evidence to suggest malignancy is seen. The patient may return to screening mammography as per ACR guidelines. BI-RADS 1 - Negative. Reviewed, dictated and finalized at location B. HAMMER SET UP OPERATOR
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
== END 2025-03-21 13:29 | disposition home or self-care (01) ==
PROVIDERS: PCP Family Medicine; Visit Provider Obstetrics & Gynecology
DX: Z12.31 Encounter for screening mammogram for malignant neoplasm of breast (principal)
CPT/HCPCS: 77063; 77067